=== PATIENT | female | born 1950 | race African-American/Black ===

== ENCOUNTER 2018-08-07 01:46 | Emergency (ER) | payer MEDICARE, BC ==
[~2018-08-07] VITALS: Ht 175.3 cm; Wt 65.0 kg
[2018-08-07] MEDS ORDERED: MAGNESIUM 2 G PREMIX 50 ML IV STA (02:21)
[2018-08-07] MEDS ORDERED: IPRATROPIUM BROMIDE (0.02%) 0.5MG/2.5ML NEB HHN STA (02:21)
[2018-08-07] MEDS ORDERED: ALBUTEROL (0.083%) 2.5MG/3ML NEB HHN STA (02:21)
[2018-08-07 05:33] VITALS: BP 101/68
== END 2018-08-07 05:38 | disposition home or self-care (01) ==
LOC: ER 01:46
DX: R06.2 Wheezing (principal); R06.02 Shortness of breath; R00.0 Tachycardia, unspecified; I10 Essential (primary) hypertension; G40.909 Epilepsy, unspecified, not intractable, without status epilepticus
CPT/HCPCS: 94640; 96365; 99284; J3475; J7611

== ENCOUNTER 2019-05-14 10:42 | Emergency (ER) | payer MEDICARE, BC ==
[~2019-05-14] VITALS: Ht 172.7 cm; Wt 91.0 kg
[2019-05-14] MEDS ORDERED: SODIUM CHLORIDE 0.9% 1,000 ML IV ONE (11:15)
[2019-05-14 12:35] LABS: BASOPHILS % 0.6 % (0.0-2.0); EOSINOPHILS % 2.7 % (0.0-5.0); HEMATOCRIT. 29.9 % (36.0-48.0); HEMOGLOBIN. 9.9 g/dL (12.0-16.0); LYMPHOCYTES % 10.2 % (20.0-50.0); MEAN CORPUSCULAR HEMOGLOBIN 26.2 pg (28.0-32.0); MEAN CORPUSCULAR VOLUME 78.9 fL (81.0-99.0); MEAN PLATELET VOLUME 6.5 fl (7.4-10.4); MONOCYTES % 6.3 % (2.0-8.0); NEUTROPHILS % 80.2 % (40.0-76.0); PLATELET 368 x1000/uL (130-400); RED BLOOD CELL COUNT 3.79 mill/uL (4.2-5.4); RED CELL DISTRIBUTION WIDTH 14.1 % (11.6-14.6)
[2019-05-14 12:36] LABS: CHLORIDE 99 mEq/L (98-107)
[2019-05-14 16:35] VITALS: BP 110/69
== END 2019-05-14 18:17 | disposition home or self-care (01) ==
LOC: ER 10:42
DX: R55 Syncope and collapse (principal); I10 Essential (primary) hypertension; J45.909 Unspecified asthma, uncomplicated
CPT/HCPCS: 36415; 71045; 80053; 83880; 84484; 85025; 93005; 96360; 96361; 99284; J7030